=== PATIENT | female | born 1930 | race Caucasian/White ===

== ENCOUNTER → 2017-08-01 | Day surgery (SDC) | payer MEDICARE, BC ==
[~2017-08-01] MED LIST: Propofol 200 MG/20 ML SDV IV ONE; Sodium Chloride 0.9% 500 ML IV SCH
--- NOTE | 2017-08-01 12:13 | OR ---
DATE OF OPERATION: 08/01/2017 PREOPERATIVE DIAGNOSIS: FOLLOWUP POLYPS. POSTOPERATIVE DIAGNOSIS: FOLLOWUP POLYPS. SURGEON: Rd Valentino MD PROCEDURE: FULL-LENGTH COLONOSCOPY. ANESTHESIA: CARDIOVASCULAR OR NURSE due to advanced age. COMPLICATIONS: None. SPECIMEN: None. FINDINGS: 1. Normal full length colonoscopy. 2. Minimal sigmoid diverticulosis. RECOMMENDATIONS: Followup colonoscopy on an as-needed basis only. INDICATIONS: The patient was in for a physical. Dr. Cruz sent her for colonoscopy due to a history of polyps. DESCRIPTION OF PROCEDURE: The patient was prepped and draped, placed in the left lateral decubitus position. A lubricated Olympus colonoscope was inserted and easily advanced to the cecum. Direct visualization of the ileocecal valve was accomplished. Bowel prep was adequate. Upon withdrawal of scope throughout the entire length of the colon, I found no signs of any polyps, masses, ulcerations, or bleeding sites. No vascular abnormalities or signs of colitis. Some mild diverticular disease in the sigmoid colon. Otherwise, unremarkable. Rectal vault was benign. Retroflexion showed no perianal lesions. Air was suctioned. Scope removed without complication. ANA/BRIDGETTE /[id number]
== END ==
LOC: CC.SDS 09:07
PROVIDERS: ATTEND Family Medicine
DX: Z12.11 Encounter for screening for malignant neoplasm of colon (principal); K57.30 Diverticulosis of large intestine without perforation or abscess without bleeding; F41.9 Anxiety disorder, unspecified; I25.10 Atherosclerotic heart disease of native coronary artery without angina pectoris; I10 Essential (primary) hypertension; E78.5 Hyperlipidemia, unspecified; E03.9 Hypothyroidism, unspecified; E55.9 Vitamin D deficiency, unspecified; Z88.0 Allergy status to penicillin; Z86.010 Personal history of colon polyps; Z87.891 Personal history of nicotine dependence; Z88.1 Allergy status to other antibiotic agents; Z88.8 Allergy status to other drugs, medicaments and biological substances; Z79.899 Other long term (current) drug therapy; Z90.49 Acquired absence of other specified parts of digestive tract; Z95.1 Presence of aortocoronary bypass graft
CPT/HCPCS: 36415; 85379; G0105; J2704; J7040; 00810